=== PATIENT | male | born 1975 | race Caucasian/White ===

== ENCOUNTER 2018-03-09 04:56 | Emergency (ER) | payer BC ==
[2018-03-09] MEDS ORDERED: MORPHINE 4 MG/ML SYR ONE (05:27)
[2018-03-09] MEDS ORDERED: PANTOPRAZOLE 40 MG INJ ONE (05:27)
[2018-03-09] MEDS ORDERED: NA CHLORIDE 0.9% 1,000 ML ONE (05:28)
[2018-03-09] MEDS ORDERED: ONDANSETRON 4 MG/2 ML VIAL ONE (05:30)
[2018-03-09 05:50] LABS: Absolute Lymphocytes (CBC) 1.5 K/uL (0.7-4.9); Absolute Monocytes 0.9 K/uL (0.1-1.3); Absolute Neutrophil 10.2 K/uL (1.8-8.0); Basophils % 0.5 % (0-1.3); Eosinophils % 2.3 % (0-4.4); Hematocrit 48.2 % (39.6-49.0); Lymphocytes % 11.4 % (15.3-44.8); MPV 8.9 fL (7.6-11.3); RBC Red Blood Cell Count 5.45 M/uL (4.33-5.43)
[2018-03-09 05:51] LABS: Protime INR 0.95
[2018-03-09 06:04] LABS: ALT/SGPT 30 U/L (12-78); AST/SGOT 17 U/L (15-37); Albumin 3.7 g/dL (3.4-5.0); Alkaline Phosphatase 88 U/L (45-117); BUN Blood Urea Nitrogen 12 mg/dL (7-18); Bicarbonate 27 mmol/L (21-32); Bilirubin Direct 0.1 mg/dL (0-0.2); Bilirubin Total 0.5 mg/dL (0.2-1.0); Glucose Level 125 mg/dL (74-106); Lipase 80 U/L (73-393); Magnesium 1.9 mg/dL (1.8-2.4); NT PRO-BNP 19 pg/mL (<125); Potassium 3.9 mmol/L (3.5-5.1); Protein, Total 7.3 g/dL (6.4-8.2); Sodium Level 142 mmol/L (136-145); Troponin (Emerg Dept Use Only) < 0.02 ng/mL (0.0-0.045)
--- NOTE | 2018-03-09 07:32 | ER ---
Nurse's Notes [facility] Name: Bandar Valderrama Age: 42 yrs Sex: Male : 1975 Arrival Date: 03/09/2018 Time: 04:57 Bed 7 Private MD: Diagnosis: Abdominal tenderness;Essential (primary) hypertension;Cholelithiasis;Cholecystitis Presentation: 03/09 05:05 Presenting complaint: Patient states: Pain started in my upper stomach around midnight. ed1 This has happened before. Transition of care: patient was not received from another setting of care. Onset of symptoms was March 09, 2018. Risk Assessment: Do you want to hurt yourself or someone else? Patient reports no desire to harm self or others. Initial Sepsis Screen: Does the patient meet any 2 criteria? No. Patient's initial sepsis screen is negative. Does the patient have a suspected source of infection? No. Patient's initial sepsis screen is negative. Care prior to arrival: None. 05:05 Method Of Arrival: Ambulatory ed1 05:05 Acuity: EMERITA 3 ed1 Triage Assessment: 05:07 General: Appears in no apparent distress. Behavior is calm, cooperative. Pain: ed1 Complains of pain in epigastric area Pain does not radiate. Pain currently is 6 out of 10 on a pain scale. Quality of pain is described as pressure, Pain began 4 hours ago. Is continuous. EENT: No signs and/or symptoms were reported regarding the EENT system. Oral mucosa is moist. Neuro: Level of Consciousness is awake, alert, obeys commands, Oriented to person, place, time, situation. Cardiovascular: Denies chest pain, Heart tones S1 S2 present. Respiratory: Airway is patent Respiratory effort is even, unlabored, Respiratory pattern is regular, symmetrical, Breath sounds are clear bilaterally. Denies cough, shortness of breath. GI: Abdomen is round Bowel sounds present X 4 quads. Abd is soft and non tender X 4 quads. Reports upper abdominal pain, gaseousness, Patient currently denies diarrhea, nausea, vomiting. : No signs and/or symptoms were reported regarding the genitourinary system. Derm: Skin is intact, is healthy with good turgor, Skin is dry, Skin is normal, Skin temperature is warm. Musculoskeletal: Circulation, motion, and sensation intact. Capillary refill < 3 seconds, in bilateral fingers. Historical: - Allergies: 05:07 No Known Allergies; ed1 - Home Meds: 05:07 lisinopril 20 mg Oral tab 1 tab once daily [Active]; ed1 - PMHx: 05:07 Hypertension; ed1 - PSHx: 05:07 Hernia repair; ed1 - Immunization history:: Adult Immunizations up to date, Flu vaccine is not up to date. Patient has never been vaccinated. - Social history:: Smoking status: Patient uses tobacco products, smokes one-half pack cigarettes per day. - Ebola Screening: : Patient negative for fever greater than or equal to 101.5 degrees Fahrenheit, and additional compatible Ebola Virus Disease symptoms Patient denies exposure to infectious person Patient denies travel to an Ebola-affected area in the 21 days before illness onset No symptoms or risks identified at this time. - Family history:: not pertinent. Screenin:29 Abuse screen: Denies threats or abuse. Denies injuries from another. Nutritional ed1 screening: No deficits noted. Tuberculosis screening: No symptoms or risk factors identified. Fall Risk None identified. Assessment: 05:29 General: See triage assessment. ed1 05:40 Reassessment: Patient appears in no apparent distress at this time. Patient and/or ed1 family updated on plan of care and expected duration. Pain level reassessed. Patient is alert, oriented x 3, equal unlabored respirations, skin warm/dry/pink. Patient states feeling better. Patient states symptoms have improved. 06:51 Reassessment: Patient appears in no apparent distress at this time. Patient and/or ed1 family updated on plan of care and expected duration. Pain level reassessed. Patient is alert, oriented x 3, equal unlabored respirations, skin warm/dry/pink. Pt reports pain returning. 07:15 Reassessment: Patient appears in no apparent distress at this time. Patient is alert, ca1 oriented x 3, equal unlabored respirations, skin warm/dry/pink. Patient states feeling better. 07:25 Reassessment: Dr. Del Toro at bedside. ca1 Vital Signs: 05:07 BP 161 / 121; Pulse 89; Resp 18; Temp 97.5; Pulse Ox 96% on R/A; Weight 120.2 kg; ed1 Height 6 ft. 0 in. (182.88 cm); Pain 6/10; 05:40 BP 151 / 106; Pulse 84; Resp 20; Pulse Ox 96% on R/A; Pain 3/10; ed1 06:51 BP 172 / 110; Pulse 73; Resp 18; Pulse Ox 97% on R/A; Pain 5/10; ed1 05:07 Body Mass Index 35.94 (120.20 kg, 182.88 cm) ed1 ED Course: 04:57 Patient arrived in ED. al2 05:01 Denise Smith, BRIGID is Primary Nurse. ed1 05:02 Thomas Del Toro MD is Attending Physician. amilcar 05:06 Triage completed. ed1 05:07 Arm band placed on. ed1 05:21 X-ray completed. Portable x-ray completed in exam room. Patient tolerated procedure tm4 well. 05:23 XRAY Chest (1 view) In Process Unspecified. EDMS 05:29 Patient has correct armband on for positive identification. Placed in gown. Bed in low ed1 position. Call light in reach. Side rails up X2. monitoring specialist on. Pulse ox on. NIBP on. 05:29 Inserted saline lock: 20 gauge in right antecubital area, using aseptic technique. ed1 Blood collected. 05:29 Initial lab(s) drawn, by me, sent to lab. EKG done, by ED staff, reviewed by Thomas ed1 Alverto EDUARDO. 05:[address] Scan, Awaiting: Ultrasound. ed1 06:[address] via wheelchair. kw1 06:45 CT completed. Patient tolerated procedure well. Patient moved back from CT. kw1 07:03 Primary Nurse role handed off by Denise Smith RN ed1 07:07 US Abdomen Limited In Process Unspecified. EDMS 07:15 Lila Clark, BRIGID is Primary Nurse. ca1 07:30 Jonathan Ruano MD is Referral Physician. amilcar 07:37 CT Abd/Pelvis - W/Contrast In Process Unspecified. EDMS 07:37 Jonathan Ruano MD is Referral Physician. amilcar 07:53 No provider procedures requiring assistance completed. Patient did not have IV access ca1 during this emergency room visit. IV discontinued, intact, bleeding controlled, No redness/swelling at site. Pressure dressing applied. Administered Medications: 05:27 Drug: morphine 4 mg Route: IVP; Site: right forearm; ed1 07:41 Follow up: Response: No adverse reaction; Pain is decreased ca1 05:27 Drug: Zofran 4 mg Route: IVP; Site: right forearm; ed1 07:41 Follow up: Response: No adverse reaction; Nausea is decreased ca1 05:28 Drug: NS 0.9% 1000 ml Route: IV; Rate: 1 bolus; Site: right forearm; ed1 07:55 Follow up: Response: No adverse reaction; IV Status: Completed infusion ca1 05:28 Drug: ProTONIX 40 mg Route: IVP; Site: right forearm; ed1 07:42 Follow up: Response: No adverse reaction ca1 Outcome: 07:30 Discharge ordered by MD. fitzgerald 07:53 AMA AMA form signed ca1 07:53 Condition: stable 07:53 Discharge instructions given to patient, Instructed on discharge instructions, follow up and referral plans. medication usage, Demonstrated understanding of instructions, follow-up care, medications, Prescriptions given X 3. 07:56 Patient left the ED. ca1 Signatures: Dispatcher [employer] EDMS Thomas Del Toro MD MD cha Marroquin, Tracy 4 Denise Smith, BRIGID RN ed1 Monik Clark kw1 Sandy Hunter Cheryl, RN RN ca1
--- NOTE | 2018-03-09 07:32 | EDPHYS ---
Physician Documentation [facility] Name: Bandar Valderrama Age: 42 yrs Sex: Male : 1975 Arrival Date: 03/09/2018 Time: 04:57 Bed 7 Private MD: ED Thomas Marie HPI: 03/09 05:10 This 42 yrs old Male presents to ER via Ambulatory with complaints of amilcar Abdominal Pain. 05:10 The patient or guardian reports chest pain that is located primarily in the substernal amilcar area, epigastric area. Onset: last night. The patient presents with abdominal pain in the epigastric area, in the upper abdomen. Onset: The symptoms/episode began/occurred 1 day(s) ago. The pain does not radiate. Associated signs and symptoms: none. Associated signs and symptoms: The patient has no apparent associated signs or symptoms. Historical: - Allergies: 05:07 No Known Allergies; ed1 - Home Meds: 05:07 lisinopril 20 mg Oral tab 1 tab once daily [Active]; ed1 - PMHx: 05:07 Hypertension; ed1 - PSHx: 05:07 Hernia repair; ed1 - Immunization history:: Adult Immunizations up to date, Flu vaccine is not up to date. Patient has never been vaccinated. - Social history:: Smoking status: Patient uses tobacco products, smokes one-half pack cigarettes per day. - Ebola Screening: : Patient negative for fever greater than or equal to 101.5 degrees Fahrenheit, and additional compatible Ebola Virus Disease symptoms Patient denies exposure to infectious person Patient denies travel to an Ebola-affected area in the 21 days before illness onset No symptoms or risks identified at this time. - Family history:: not pertinent. ROS: 05:10 Constitutional: Negative for fever, chills, and weight loss, Eyes: Negative for injury, amilcar pain, redness, and discharge, ENT: Negative for injury, pain, and discharge, Neck: Negative for injury, pain, and swelling, Respiratory: Negative for shortness of breath, cough, wheezing, and pleuritic chest pain, Back: Negative for injury and pain, : Negative for injury, bleeding, discharge, and swelling, MS/Extremity: Negative for injury and deformity, Skin: Negative for injury, rash, and discoloration, Neuro: Negative for headache, weakness, numbness, tingling, and seizure, Psych: Negative for depression, anxiety, suicide ideation, homicidal ideation, and hallucinations, Allergy/Immunology: Negative for hives, rash, and allergies, Endocrine: Negative for neck swelling, polydipsia, polyuria, polyphagia, and marked weight changes, Hematologic/Lymphatic: Negative for swollen nodes, abnormal bleeding, and unusual bruising. 05:10 Cardiovascular: Positive for chest pain. 05:10 Cardiovascular: Positive for Exam: 05:10 Constitutional: This is a well developed, well nourished patient who is awake, alert, amilcar and in no acute distress. Head/Face: Normocephalic, atraumatic. Eyes: Pupils equal round and reactive to light, extra-ocular motions intact. Lids and lashes normal. Conjunctiva and sclera are non-icteric and not injected. Cornea within normal limits. Periorbital areas with no swelling, redness, or edema. ENT: Nares patent. No nasal discharge, no septal abnormalities noted. Tympanic membranes are normal and external auditory canals are clear. Oropharynx with no redness, swelling, or masses, exudates, or evidence of obstruction, uvula midline. Mucous membranes moist. Neck: Trachea midline, no thyromegaly or masses palpated, and no cervical lymphadenopathy. Supple, full range of motion without nuchal rigidity, or vertebral point tenderness. No Meningismus. Chest/axilla: Normal chest wall appearance and motion. Nontender with no deformity. No lesions are appreciated. Cardiovascular: Regular rate and rhythm with a normal S1 and S2. No gallops, murmurs, or rubs. Normal PMI, no JVD. No pulse deficits. Respiratory: Lungs have equal breath sounds bilaterally, clear to auscultation and percussion. No rales, rhonchi or wheezes noted. No increased work of breathing, no retractions or nasal flaring. Back: No spinal tenderness. No costovertebral tenderness. Full range of motion. Male : Normal genitalia with no discharge or lesions. Skin: Warm, dry with normal turgor. Normal color with no rashes, no lesions, and no evidence of cellulitis. MS/ Extremity: Pulses equal, no cyanosis. Neurovascular intact. Full, normal range of motion. Neuro: Awake and alert, GCS 15, oriented to person, place, time, and situation. Cranial nerves II-XII grossly intact. Motor strength 5/5 in all extremities. Sensory grossly intact. Cerebellar exam normal. Normal gait. Psych: Awake, alert, with orientation to person, place and time. Behavior, mood, and affect are within normal limits. 05:10 Abdomen/GI: Inspection: distension, Bowel sounds: normal, Palpation: mild abdominal tenderness, moderate abdominal tenderness, in the epigastric area. 05:12 Musculoskeletal/extremity: DVT Exam: No signs of deep vein thrombosis. no pain, no amilcar swelling, no tenderness, negative Homans' sign noted on exam, no appreciated bluish discoloration, no erythema, no increased warmth. Vital Signs: 05:07 BP 161 / 121; Pulse 89; Resp 18; Temp 97.5; Pulse Ox 96% on R/A; Weight 120.2 kg; ed1 Height 6 ft. 0 in. (182.88 cm); Pain 6/10; 05:40 BP 151 / 106; Pulse 84; Resp 20; Pulse Ox 96% on R/A; Pain 3/10; ed1 06:51 BP 172 / 110; Pulse 73; Resp 18; Pulse Ox 97% on R/A; Pain 5/10; ed1 05:07 Body Mass Index 35.94 (120.20 kg, 182.88 cm) ed1 MDM: 05:02 Patient medically screened. [facility] 07:27 Data reviewed: vital signs, nurses notes, lab test result(s), EKG, radiologic studies, [facility] plain films. 03/09 05:09 Order name: Basic Metabolic Panel [facility] 03/09 05:09 Order name: CBC with Diff [facility] 03/09 05:09 Order name: LFT's [facility] 03/09 05:09 Order name: Magnesium; Complete Time: 06:27 [facility] 03/09 05:09 Order name: NT PRO-BNP; Complete Time: 06:27 [facility] 03/09 05:09 Order name: PT-INR; Complete Time: 06:27 [facility] 03/09 05:09 Order name: Troponin (emerg Dept Use Only); Complete Time: 06:27 [facility] 03/09 05:09 Order name: XRAY Chest (1 view) [facility] 03/09 05:09 Order name: Lipase; Complete Time: 06:27 [facility] 03/09 05:09 Order name: US Abdomen Limited [facility] 03/09 05:09 Order name: CT Abd/Pelvis - W/Contrast [facility] 03/09 05:09 Order name: Basic Metabolic Panel; Complete Time: 06:27 [facility] 03/09 05:09 Order name: CBC with Automated Diff; Complete Time: 06:27 [facility] 03/09 05:09 Order name: Liver (Hepatic) Function; Complete Time: 06:27 [facility] 03/09 05:09 Order name: EKG; Complete Time: 05:10 [facility] 03/09 05:09 Order name: Cardiac monitoring; Complete Time: : [facility] 03/09 05:09 Order name: EKG - Nurse/Tech; Complete Time: 05: [facility] 03/09 05:09 Order name: IV Saline Lock; Complete Time: 05: [facility] 03/09 05:09 Order name: Labs collected and sent; Complete Time: : [facility] 03/09 05:09 Order name: O2 Per Protocol; Complete Time: 05: [facility] 03/09 05:09 Order name: O2 Sat Monitoring; Complete Time: 05:29 [facility] Administered Medications: 05:27 Drug: morphine 4 mg Route: IVP; Site: right forearm; ed1 07:41 Follow up: Response: No adverse reaction; Pain is decreased ca1 05:27 Drug: Zofran 4 mg Route: IVP; Site: right forearm; ed1 07:41 Follow up: Response: No adverse reaction; Nausea is decreased ca1 05:28 Drug: NS 0.9% 1000 ml Route: IV; Rate: 1 bolus; Site: right forearm; ed1 07:55 Follow up: Response: No adverse reaction; IV Status: Completed infusion ca1 05:28 Drug: ProTONIX 40 mg Route: IVP; Site: right forearm; ed1 07:42 Follow up: Response: No adverse reaction ca1 Disposition: 03/09/18 07:38 Patient has left against medical advice. Impression: Abdominal tenderness, Essential (primary) hypertension, Cholelithiasis, Cholecystitis. - Patients states they are going to Home. - Condition is Stable. - Discharge Instructions: Abdominal Pain, Adult, Hypertension, Cholelithiasis, Cholelithiasis, [id number], Abdominal Pain, Adult, [id number], Hypertension, [id number], Managing Your Hypertension. - Prescriptions for Levaquin 750 mg Oral Tablet - take 1 tablet by ORAL route once daily for 7 days; 7 tablet. Pepcid 20 mg Oral Tablet - take 1 tablet by ORAL route every 12 hours for 10 days; 20 tablet. Zofran 4 mg Oral Tablet - take 1 tablet by ORAL route every 12 hours As needed; 14 tablet. Work release form form. Follow up: Private Physician; When: Upon discharge from the Emergency Department; Reason: Recheck today's complaints, Continuance of care, Re-evaluation by your physician. Follow up: Jonathan Ruano MD; When: Upon discharge from the Emergency Department; Reason: Recheck today's complaints, Re-evaluation by your physician. - Problem is new. - Symptoms have improved. Signatures: Dispatcher [employer] EDMS Thomas Del Toro MD MD cha Riggs, Erika RN RN ed1 Lila Clark RN RN ca1 Corrections: (The following items were deleted from the chart) 07:36 07:30 03/09/2018 07:30 Discharged to Home. Impression: Abdominal tenderness; amilcar Cholelithiasis; Essential (primary) hypertension. Condition is Stable. Forms are Medication Reconciliation Form, Thank You Letter, Antibiotic Education, Prescription Opioid Use. Follow up: Private Physician; When: 2 - 3 days; Reason: Recheck today's complaints, Continuance of care, Re-evaluation by your physician. Follow up: Jonathan Ruano; When: 1 - 2 days; Reason: Recheck today's complaints, Re-evaluation by your physician. amilcar 07:56 07:38 03/09/2018 07:38 Patients has left against medical advice. Impression: Abdominal ca1 tenderness; Essential (primary) hypertension; Cholelithiasis; Cholecystitis. Patient states they are going to Home. Condition is Stable. Follow up: Private Physician; When: Upon discharge from the Emergency Department; Reason: Recheck today's complaints, Continuance of care, Re-evaluation by your physician. Follow up: Jonathan Ruano; When: Upon discharge from the Emergency Department; Reason: Recheck today's complaints, Re-evaluation by your physician. Problem is new. Symptoms have improved. amilcar
--- NOTE | 2018-03-09 08:14 | RAD REPORT ---
EXAM DESCRIPTION: US - Abdomen Exam Limited - 03/09/2018 7:08 am CLINICAL HISTORY: ABD PAIN COMPARISON: No comparisons FINDINGS: The gallbladder demonstrates 2 shadowing gallstones. Gallbladder wall is upper limit of no rmal measuring 4 mm. The common bile duct is mildly prominent measuring 6 mm. The liver demonstrates no findings of intrahepatic biliary dilatation. IMPRESSION: Cholelithiasis. Upper limit of normal gallbladder wall measuring 4 mm. In the correct clinical setting, this could in dicate early acute cholecystitis. HIDA scan may be of value. Mildly prominent common duct measuring 6 mm.
--- NOTE | 2018-03-09 08:32 | RAD REPORT ---
EXAM DESCRIPTION: RAD - Chest Single View - 03/09/2018 5:23 am CLINICAL HISTORY: Chest pain;Abdominal distention Chest pain. COMPARISON: No comparisons FINDINGS: Portable technique limits examination quality. The lungs are grossly clear. The heart is normal in size. No displaced fractures. IMPRESSION: No acute intrathoracic process suspected.
--- NOTE | 2018-03-09 08:39 | RAD REPORT ---
EXAM DESCRIPTION: CTAbdomen Pelvis W Contrast - 03/09/2018 7:37 am CLINICAL HISTORY: Abdominal pain. ABD PAIN COMPARISON: No comparisons TECHNIQUE: Biphasic CT imaging of the abdomen and pelvis was performed with 100 ml non-ionic IV cont rast. All CT scans are performed using dose optimization technique as appropriate and may include automated exposure control or mA/KV adjustment according to patient size. FINDINGS: The lung bases are clear.Cholelithiasis. Diffuse fatty liver. The spleen, pancreas, adrenal glands kidneys are within normal limits. No bowel obstruction, free air, free fluid or abscess. Sigmoid diverticulosis coli without diverticul itis. Normal appendix. No evidence of significant lymphadenopathy. No suspicious bony findings. IMPRESSION: Cholelithiasis. Fatty liver. Sigmoid diverticulosis without diverticulitis.
--- NOTE | 2018-03-09 20:52 | EKG ---
Test Date: 2018-03-09 Test Time: 05:25:11 Woodworking Belt Sander: LIZBETH MEASUREMENT RESULTS: Intervals: Rate: 80 AR: 144 QRSD: 94 QT: 356 QTc: 410 [place]: P: 19 AR: 144 QRS: 51 T: 21 INTERPRETIVE STATEMENTS: Normal sinus rhythm Normal ECG No previous ECG available for comparison Electronically Signed On 03-09-18 20:48:14 ASSISTANT MANAGER TRAINEE by Modesto Escobedo
== END 2018-03-09 07:56 | disposition left against medical advice (07) ==
LOC: ER 04:56
DX: K80.10 Calculus of gallbladder with chronic cholecystitis without obstruction (principal); I10 Essential (primary) hypertension; F17.210 Nicotine dependence, cigarettes, uncomplicated
CPT/HCPCS: 36415; 71045; 74177; 76705; 80048; 80076; 83690; 83735; 83880; 84484; 85025; 85610; 93005; 96361; 96374; 96375; 99285; C9113; J2405; J7030; Q9967